=== PATIENT | female | born 1955 | race Caucasian/White ===

== ENCOUNTER 2018-10-03 16:14 | Emergency (ER) | payer OTHER ==
[~2018-10-03] VITALS: Ht 162.6 cm; Wt 136.1 kg
[2018-10-03] MEDS ORDERED: METROPOLOL (16:21)
[2018-10-03] MEDS ORDERED: [UNRECOGNIZED DRUG - OTHER] (16:22)
[2018-10-03] MEDS ORDERED: PNEU16DI2 (16:22)
== END 2018-10-03 20:36 | disposition home or self-care (01) ==
LOC: ER 16:14
DX: L03.116 Cellulitis of left lower limb (principal)